=== PATIENT | male | born 1985 | race Two or more races ===

== ENCOUNTER → 2019-07-28 | Outpatient (REF) | payer BC ==
[2019-07-28 17:08] LABS: ALBUMIN 4.3 GM/DL (3.2-5.2); ALT/SGPT 41 U/L (12-78); BILIRUBIN,TOTAL 0.7 MG/DL (0.2-1.0); BLOOD UREA NITROGEN 13 MG/DL (7-18); CALCIUM LEVEL 9.6 MG/DL (8.5-10.1); CARBON DIOXIDE LEVEL 28 MEQ/L (21-32); CHLORIDE LEVEL 105 MEQ/L (98-107); CHOLESTEROL LEVEL 172 MG/DL (<200); CHOLESTEROL RISK RATIO 5.375 (<5); CREATININE FOR GFR 0.89 MG/DL (0.70-1.30); GLOMERULAR FILTRATION RATE > 60.0 (>60); GLUCOSE, FASTING 114 MG/DL (70-100); HDL CHOLESTEROL 32 MG/DL (>40); LDL CHOLESTEROL 74 MG/DL (<100); NON-HDL-C 140 MG/DL; POTASSIUM SERUM 4.2 MEQ/L (3.5-5.1); SODIUM LEVEL 139 MEQ/L (136-145); TOTAL PROTEIN 7.7 GM/DL (6.4-8.2); TRIGLYCERIDES LEVEL 331 MG/DL (<150)
[2019-07-28 17:12] LABS: BASO % 0.4 % (0.0-1.0); EOS # 0.2 10^3/uL (0.0-0.5); EOS % 2.1 % (0.0-3.0); HEMATOCRIT 45.8 % (42.0-52.0); LYMPH % 27.3 % (24.0-44.0); MEAN CORPUSCULAR HEMOGLOBIN 28.1 pg (27.0-33.0); MEAN CORPUSCULAR HGB CONC 32.8 g/dl (32.0-36.5); MEAN CORPUSCULAR VOLUME 85.8 fl (80.0-96.0); MONO # 0.5 10^3/uL (0.0-0.8); MONO % 6.8 % (0.0-5.0); NEUTROPHILS # 4.6 10^3/uL (1.5-8.5); NEUTROPHILS % 63.1 % (36.0-66.0); PLATELET COUNT, AUTOMATED 219 10^3/uL (150-450); RED BLOOD COUNT 5.34 10^6/uL (4.30-6.10); WHITE BLOOD COUNT 7.3 10^3/uL (4.0-10.0)
[2019-07-28 17:31] LABS: HEPATITIS B SURFACE ANTIGEN NEGATIVE (NEGATIVE)
[2019-07-28 17:32] LABS: HEMOGLOBIN A1c 6.2 %
[2019-07-28 17:58] LABS: HEPATITIS B CORE ANTIBODY IGM NEGATIVE (NEGATIVE)
[2019-07-28 18:00] LABS: HIV 1&2 SCREEN CENTAUR NEGATIVE (NEGATIVE)
[2019-07-28 18:01] LABS: HEPATITIS A ANTIBODY IGM NEGATIVE (NEGATIVE)
[2019-08-02 07:40] LABS: HEPATITIS C VIRUS ABY INDEX 0.5 INDEX (<0.8)
== END ==
LOC: M SFHCPLAZ 13:39
DX: Z00.00 Encounter for general adult medical examination without abnormal findings (principal)

== ENCOUNTER → 2019-07-28 | Outpatient (CLI) | payer BC ==
--- NOTE | 2019-07-28 14:38 | REPPI ---
REASON: Pain. FINDINGS: No acute fracture or destructive osseous lesion. Electronically Signed by Dima Mackenzie DO 07/28/2019 02:49 P
--- NOTE | 2019-07-28 14:39 | REPPI ---
REASON: Pain. FINDINGS: No acute fracture or destructive osseous lesion. Electronically Signed by Dima Mackenzie DO 07/28/2019 02:49 P
--- NOTE | 2019-07-28 14:39 | REPPI ---
RIGHT SHOULDER: REASON: Shoulder pain. COMPARISON: No priors. FINDINGS: Three views of the right shoulder were performed. The acromioclavicular and glenohumeral relationships are within normal limits. There is no acute fracture or destructive osseous lesion. Electronically Signed by Dima Mackenzie DO 07/28/2019 02:49 P
== END ==
LOC: M PLAIMG 13:40
PROVIDERS: ATTEND Internal Medicine
DX: S46.911A Strain of unspecified muscle, fascia and tendon at shoulder and upper arm level, right arm, initial encounter (principal); X58.XXXA Exposure to other specified factors, initial encounter; Y92.9 Unspecified place or not applicable

== ENCOUNTER 2019-09-04 09:00 | Outpatient (RCR) | payer BC | END 2019-09-05 | LOC: M PT 09:00 | PROVIDERS: ATTEND Obstetrics & Gynecology | DX: Z51.89 Encounter for other specified aftercare (principal); S46.819A Strain of other muscles, fascia and tendons at shoulder and upper arm level, unspecified arm, initial encounter; X58.XXXA Exposure to other specified factors, initial encounter; Y92.89 Other specified places as the place of occurrence of the external cause; Y93.9 Activity, unspecified; Y99.9 Unspecified external cause status ==

== ENCOUNTER 2019-10-02 12:15 | Outpatient (RCR) | payer BC | END 2019-10-06 | disposition home or self-care (01) | LOC: M PT 12:15 | PROVIDERS: ATTEND Obstetrics & Gynecology | DX: S46.819A Strain of other muscles, fascia and tendons at shoulder and upper arm level, unspecified arm, initial encounter (principal); X58.XXXA Exposure to other specified factors, initial encounter; Y92.9 Unspecified place or not applicable ==

== ENCOUNTER → 2019-11-08 | Outpatient (CLI) | payer BC ==
[2019-11-10 07:07] LABS: MUMPS VIRUS IgG ANTIBODY 48.6 AU/mL (Immune >10.9); RUBEOLA IgG ANTIBODY >300.0 AU/mL (Immune >16.4)
== END ==
LOC: M PLALAB 13:14
PROVIDERS: ATTEND Internal Medicine
DX: Z01.84 Encounter for antibody response examination (principal)

== ENCOUNTER → 2019-12-21 | Outpatient (CLI) | payer BC ==
--- NOTE | 2019-12-25 11:43 | ECWPNPC ---
PATIENT NAME: ADLTON ABRAHAM : 1985 GENDER: MALE VISIT DATE: 12/21/2019 DISCHARGE DATE: 12/21/19 0949 VISIT LOCKED DATE TIME: PHYSICIAN: MICHELLE SINGLETARY PHYSICIAN PAGER NO: ACTIVE RESOURCE: MICHELLE SINGLETARY REASON FOR APPOINTMENT 1. 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 HE NOTICED THIS ABOUT ONE YEAR AGO. 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 HE IS REFERRED HERE BY MARIO VELEZ. CERVICAL IMAGING IS REVIEWED. PAIN RANGES FROM 4-8/10 VAS. PAIN IS AGGRAVATED WITH USE OF RIGHT ARM I.E. LIFTING. DENIES RECENT FEVER OR ILLNESS OR WEIGHT LOSS. DENIES BOWEL OR BLADDER INCONTINENCE. PHQ-2 (2015 EDITION) LITTLE INTEREST OR PLEASURE IN DOING THINGS?NOT AT ALL FEELING DOWN, DEPRESSED, OR HOPELESS?NOT AT ALL TOTAL SCORE0 CURRENT MEDICATIONS TAKING METFORMIN HCL ER 500 MG TABLET EXTENDED RELEASE 24 HOUR 1 TABLET WITH EVENING MEAL ORALLY ONCE A DAY TAKING IBUPROFEN 600 MG TABLET 1 TABLET WITH FOOD OR MILK NEEDED ORALLY EVERY 8 HOURS NEEDED TAKING ACETAMINOPHEN EXTRA STRENGTH 500 MG TABLET 1 TABLET NEEDED ORALLY EVERY 6 HRS TAKING GABAPENTIN 300 MG CAPSULE 1 CAPSULE ORALLY ONCE A DAY PAST MEDICAL HISTORY MEDICAL HISTORY VERIFIED. ALLERGIES N.K.D.A. SURGICAL HISTORY DENIES PAST SURGICAL HISTORY FAMILY HISTORY FATHER: ALIVE 57 YRS MOTHER: ALIVE 53 YRS 1 BROTHER(S) - HEALTHY. DIABETES IN BOTH PARENTSHIGH CHOLESTEROL IN BOTH PARENTS. SOCIAL HISTORY GENERAL: TOBACCO USE ARE YOU A:NONSMOKER LATEX QUESTIONNAIRE LATEX ALLERGY : HAVE YOU EVER DEVELOPED ANY TYPE OF REACTION AFTER HANDLING LATEX PRODUCTS SUCH RUBBER GLOVES, CONDOMS, DIAPHRAGMS, BALLOONS, SOCKS, OR UNDERWEAR?NO LATEX ALLERGY : HAVE YOU EVER DEVELOPED ANY TYPE OF REACTION DURING OR AFTER DENTAL APPOINTMENT, VAGINAL/RECTAL EXAMINATION, SURGICAL PROCEDURE, OR ANY OTHER EXPOSURE?NO LATEX RISK : HAVE YOU EVER HAD ANY DIFFICULTY BREATHING OR HIVES AFTER EATING OR HANDLING ANY FRUITS, OR VEGETABLES; SUCH KIWI, BANANAS, STONE FRUITS, OR CHESTNUTSNO LATEX RISK : DO YOU HAVE A PREVIOUS PERSONAL HISTORY OF MORE THAN NINE SURGERIES, SPINA BIFIDA, OR REPEATED CATHERIZATIONS? NO LATEX RISK : ARE YOU FREQUENTLY EXPOSED TO LATEX PRODUCTS IN YOUR OCCUPATION?NO DATE ASKED : 12/21/2019 HIV / HEP-C SCREENING HIV TEST OFFERED TO PATIENT:YES DATE OFFERED:07/28/2019 TEST ACCEPTED:NO REASON:PATIENT DECLINED BROCHURE PROVIDED TO PATIENTYES LEARNING BARRIERS / SPECIAL NEEDS BARRIERS TO LEARNING?NO HEARING IMPAIRED?NO VISION IMPAIRED?NO COGNITIVELY IMPAIRED?NO READINESS TO LEARN?YES LEARNING PREFERENCES?NO LEARNING CAPABILITIES PRESENT?YES EMOTIONAL BARRIERS?NO SPECIAL DEVICES?NO STITCH BONDING MACHINE TENDER HELPER NEEDED?NO PAIN CLINIC PFS, CLERGY, PUBLIC HEALTH REFERRALS HAS THE PATIENT BEEN EDUCATED REGARDING HIS/HER PLAN OF CARE?YES HAS THE PATIENT BEEN EDUCATED REGARDING PAIN, THE RISK FOR PAIN, THE IMPORTANCE OF EFFECTIVE PAIN MANAGEMENT, AND THE PAIN ASSESSMENT PROCESS?YES HOSPITALIZATION/MAJOR DIAGNOSTIC PROCEDURE DENIES PAST HOSPITALIZATION REVIEW OF SYSTEMS CONSTITUTIONAL: ANY RECENT FEVER NO . CHILLS NO . WEIGHT CHANGE OF UNKNOWN REASONS NO . MUSCULOSKELETAL: ANY UNUSUAL JOINT PAIN OR SWELLING NOT MENTIONED NO . SYSTEMIC LUPUS NO . ANY NEUROMUSCULAR DISORDER NOT MENTIONED NO . LYME DISEASE NO . GASTROENTEROLOGY: ANY NEW CHANGE IN BOWEL CONTROL? NO . HISTORY OF LIVER DISORDER NOT MENTIONED NO . HISTORY OF UNUSUAL ABDOMINAL PAIN OR CRAMPING NOT MENTIONED NO . NO CONSTIPATION. GENITOURINARY: ANY NEW CHANGE IN BLADDER CONTROL? NO . ANY RENAL/KIDNEY CONDITON NOT MENTIONED NO . NEUROLOGY: HISTORY OF TBI NOT MENTIONED NO . OTHER NEW NUMBNESS OR PAIN PATTERNS NOT MENTIONED NO . NEW ONSET DIZZINESS OR NEUROLOGICAL CHANGES NOT MENTIONED NO . HISTORY OF SEVERE HEADACHES NOT MENTIONED NO . HISTORY OF STROKE OR NEUROLOGICAL DISORDER NOT MENTIONED NO . CARDIOLOGY: HEART SURGERY NO . CONGESTIVE HEART FAILURE/FLUID OVERLOAD NOT MENTIONED NO . HISTORY OF CHEST PAIN,IRREGULAR HEART BEAT NOT MENTIONED NO . RESPIRATORY: SHORTNESS OF BREATH ON EXERTION, WHEEZES, UNUSUAL COUGH NOT MENTIONED NO . ENDOCRINOLOGY: ADRENAL GLAND OR THYROID DISORDERS NOT MENTIONED NO . UNUSUAL URINATION, DIZZINESS OR LETHARGY NOT MENTIONED NO . VITAL SIGNS WT 138.2 LBS, HT 66 IN, BMI 22.30 INDEX, BP 131/74 MM HG, HR 66 /MIN, RR 18 /MIN, TEMP 97.5 F, OXYGEN SAT % 100, SAFE IN ENV? (Y/N) YES, REVIEWED BY: LENCHO. EXAMINATION GENERAL EXAMINATION: GENERAL AWAKE,ALERT ,PLEAASANT . PSYCH AFFECT NORMAL . LUNGS: LUNG RUFFIN ARE CLEAR TO AUSCULTATION BILATERALLY. GOOD MOVEMENT OF AIR . HEART: S1, S2 IN A REGULAR RATE AND RHYTHM. NO SIGNIFICANT MURMURS, RUBS OR GALLOPS NOTED . MUSCULOSKELETAL:NORMAL RANGE OF MOTION, TRIGGER POINTS:, ELICITED WITH PALPATION OVER RIGHT RHOMBOID, RIGHT UPPER BACK, RIGHT SCAPULA A. PAIN IN THIS AREA IS AGGRAVATED WITH RANGE OF JOINT MOTION OF THE RIGHT ARM.. DIAGNOSTIC TESTS REVIEWEDMRI C-SPINE . ASSESSMENTS MYALGIA, OTHER SITE - M79.18 (PRIMARY) TREATMENT MYALGIA, OTHER SITE NOTES: TRIGGER POINT INJECTION RIGHT UPPER BACK. PROCEDURE CODES FA211 ESTABILISHED PATIENT [facility] FACILITY CHARGE DISPOSITION & COMMUNICATION FOLLOW UP POST PROCEDURE (REASON: TRIGGER POINT INJECTION RIGHT UPPER BACK) ELECTRONICALLY SIGNED BY REAL DUNBAR ON 12/25/2019 AT 11:17 AM EDT DISCLAIMER : THIS IS A VISIT SUMMARY EXTRACTED FROM THE [employer] CHART. IT IS NOT A COPY OF THE [employer] PROGRESS NOTE. RADU
== END ==
LOC: M PAIN 08:30
PROVIDERS: ATTEND Nurse Practitioner Family
DX: M79.18 Myalgia, other site (principal); Z79.899 Other long term (current) drug therapy

== ENCOUNTER → 2020-01-08 | Outpatient (CLI) | payer BC | LOC: M LABSMTC 10:38 | PROVIDERS: ATTEND Anesthesiology | DX: Z20.828 Contact with and (suspected) exposure to other viral communicable diseases (principal) | CPT/HCPCS: C9803; U0003 ==

== ENCOUNTER → 2020-01-12 | Outpatient (CLI) | payer BC ==
[~2020-01-12] MED LIST: BUPIVACAINE HCL 0.25% 10ML VIAL As Ordered ONE; BUPIVACAINE HCL 0.25% 30ML VIAL As Ordered ONE
--- NOTE | 2020-01-17 00:19 | ECWPNPC ---
PATIENT NAME: DALTON ABRAHAM : 1985 GENDER: MALE VISIT DATE: 01/12/2020 DISCHARGE DATE: 01/12/20 1132 VISIT LOCKED DATE TIME: PHYSICIAN: ROXANNA CURTIS MD PHYSICIAN PAGER NO: ACTIVE RESOURCE: ROXANNA CURTIS MD REASON FOR APPOINTMENT 1. TRIGGER POINT INJECTION RIGHT UPPER BACK HISTORY OF PRESENT ILLNESS GENERAL: -. FALL RISK SCREENING: SCREENING :NO FALLS REPORTED IN THE LAST YEAR PAIN SCREENING: PATIENT HAS A COMPLAINT OF ACUTE OR CHRONIC PAIN :YES LOCATION OF PAIN: RIGHT SHOULDER, AND ARM INTENSITY OF PAIN (SCALE OF 1 TO 10):6 WHAT DOES YOUR PAIN FEEL LIKE:CONTINOUS, ACHING DURATION:CONSTANT PAIN IS INCREASED BY:ACTIVITIES PLAN/GOALS/TREATMENT/INTERVENTION/FOLLOW UP:SEE PLAN NURSING NOTE: -. PAIN CENTER INTAKE QUESTIONS: DO YOU HAVE A HISTORY OF MRSA? :NO DO YOU TAKE A BLOOD THINNERS? :NO DO YOU HAVE ANY BLEEDING DISORDERS? :NO ANY NEW NUMBNESS OR WEAKNESS IN YOUR LEGS OR ARMS? :NO ANY PACEMAKER,DEFIBRILLATOR, OR DORSAL COLUMN STIMULATOR? :NO DO YOU HAVE ANY RASHES OR OPEN SORES? :NO ARE YOU ALLERGIC TO IV DYE? :NO ARE YOU DIABETIC? :NO ANY NEW PROBLEMS WITH YOUR MEDICATIONS? :NO HAVE YOU RECEIVED A VACCINE IN THE PAST 30 DAYS? :NO DO YOU PLAN TO RECEIVE A VACCINE IN THE NEXT 21 DAYS? :NO DO YOU TAKE ANY IMMUNOSUPPRESSIVE MEDICATIONS? :NO ANY HISTORY OF SEIZURES? :NO ANY HISTORY OF CARDIAC ISSUES OR EVENTS? :NO DO YOU HAVE SLEEP APNEA? :NO ANY RECENT HEAD INJURY? :NO DO YOU HAVE ANY NEW INFECTIONS? :NO IS THERE A CHANCE YOU COULD BE ? :NO ARE YOU BREAST FEEDING? :NO WHEN DID YOU LAST EAT? : 01/11/20 2200 WHEN DID YOU LAST DRINK? : 01/11/20 0700 WHAT DID YOU LAST DRINK? : WATER NAME OF PERSON DRIVING YOU HOME? : BROTHER DO YOU HAVE ANY OTHER QUESTIONS OR CONCERNS? : NO CURRENT MEDICATIONS TAKING IBUPROFEN 600 MG TABLET 1 TABLET WITH FOOD OR MILK NEEDED ORALLY EVERY 8 HOURS NEEDED TAKING GABAPENTIN 300 MG CAPSULE 1 CAPSULE ORALLY ONCE A DAY NOT-TAKING METFORMIN HCL ER 500 MG TABLET EXTENDED RELEASE 24 HOUR 1 TABLET WITH EVENING MEAL ORALLY ONCE A DAY NOT-TAKING ACETAMINOPHEN EXTRA STRENGTH 500 MG TABLET 1 TABLET NEEDED ORALLY EVERY 6 HRS PAST MEDICAL HISTORY MEDICAL HISTORY VERIFIED. ALLERGIES N.K.D.A. SURGICAL HISTORY DENIES PAST SURGICAL HISTORY FAMILY HISTORY FATHER: ALIVE 57 YRS MOTHER: ALIVE 53 YRS SIBLINGS: ALIVE 1 BROTHER(S) - HEALTHY. DIABETES IN FATHERHIGH CHOLESTEROL IN BOTH PARENTS. SOCIAL HISTORY GENERAL: TOBACCO USE ARE YOU A:NONSMOKER LATEX QUESTIONNAIRE LATEX ALLERGY : HAVE YOU EVER DEVELOPED ANY TYPE OF REACTION AFTER HANDLING LATEX PRODUCTS SUCH RUBBER GLOVES, CONDOMS, DIAPHRAGMS, BALLOONS, SOCKS, OR UNDERWEAR?NO LATEX ALLERGY : HAVE YOU EVER DEVELOPED ANY TYPE OF REACTION DURING OR AFTER DENTAL APPOINTMENT, VAGINAL/RECTAL EXAMINATION, SURGICAL PROCEDURE, OR ANY OTHER EXPOSURE?NO LATEX RISK : HAVE YOU EVER HAD ANY DIFFICULTY BREATHING OR HIVES AFTER EATING OR HANDLING ANY FRUITS, OR VEGETABLES; SUCH KIWI, BANANAS, STONE FRUITS, OR CHESTNUTSNO LATEX RISK : DO YOU HAVE A PREVIOUS PERSONAL HISTORY OF MORE THAN NINE SURGERIES, SPINA BIFIDA, OR REPEATED CATHERIZATIONS? NO LATEX RISK : ARE YOU FREQUENTLY EXPOSED TO LATEX PRODUCTS IN YOUR OCCUPATION?NO DATE ASKED : 01/12/2020 ALCOHOL SCREENING DID YOU HAVE A DRINK CONTAINING ALCOHOL IN THE PAST YEAR?YES HOW OFTEN DID YOU HAVE A DRINK CONTAINING ALCOHOL IN THE PAST YEAR?TWO TO FOUR TIMES A MONTH (2 POINTS) HOW MANY DRINKS DID YOU HAVE ON A TYPICAL DAY WHEN YOU WERE DRINKING IN THE PAST YEAR?1 OR 2 (0 POINTS) HOW OFTEN DID YOU HAVE SIX OR MORE DRINKS ON ONE OCCASION IN THE PAST YEAR?NEVER (0 POINTS) POINTS2 INTERPRETATIONNEGATIVE HIV / HEP-C SCREENING HIV TEST OFFERED TO PATIENT:YES DATE OFFERED:07/28/2019 TEST ACCEPTED:NO REASON:PATIENT DECLINED BROCHURE PROVIDED TO PATIENTYES LANGUAGE LANGUAGES SPOKEN: [facility] EDUCATION LEVEL OF EDUCATION:COLLEGE LEARNING BARRIERS / SPECIAL NEEDS BARRIERS TO LEARNING?NO HEARING IMPAIRED?NO VISION IMPAIRED?NO COGNITIVELY IMPAIRED?NO READINESS TO LEARN?YES LEARNING PREFERENCES?NO LEARNING CAPABILITIES PRESENT?YES EMOTIONAL BARRIERS?NO SPECIAL DEVICES?NO JUKEBOX OPERATOR NEEDED?YES HAVE AVAILABLE ([facility]) OCCUPATION: UNEMPLOYED. DIET: NO ADDED SALT, LOW FAT, LOW CHOLESTEROL. MARITAL STATUS: SINGLE. PAIN CLINIC PFS, CLERGY, PUBLIC HEALTH REFERRALS HAS THE PATIENT BEEN EDUCATED REGARDING HIS/HER PLAN OF CARE?YES HAS THE PATIENT BEEN EDUCATED REGARDING PAIN, THE RISK FOR PAIN, THE IMPORTANCE OF EFFECTIVE PAIN MANAGEMENT, AND THE PAIN ASSESSMENT PROCESS?YES HOUSING: PARENTS HOME. ADVANCE DIRECTIVE ADVANCE DIRECTIVE DISCUSSED WITH PATIENT:YES OFFERED ASSISTANCE NOT NEEDED AT THIS TIME. HOSPITALIZATION/MAJOR DIAGNOSTIC PROCEDURE DENIES PAST HOSPITALIZATION VITAL SIGNS WT 139.6 LBS, HT 66 IN, BMI 22.53 INDEX, BP 137/87 MM HG, HR 102 /MIN, RR 18 /MIN, TEMP 98.0 F, OXYGEN SAT % 99%, SAFE IN ENV? (Y/N) YES, NA INITIALS GA 09:37, REVIEWED BY: JAMES GOLDSTEIN MANAGER OF SUSTAINABILITY. EXAMINATION GENERAL EXAMINATION: THE PATIENT IS ALERT, ORIENTED TIMES THREE AND COOPERATIVE. HEART SHOWS REGULAR RHYTHM, NO MURMURS AND NO GALLOPS. LUNGS ARE CLEAR TO AUSCULTATION. ASSESSMENTS MYALGIA, OTHER SITE - M79.18 (PRIMARY) PROCEDURES PAIN NURSING RECORD PRE-PROCEDURE IV SITE N/A, PRE-PROCEDURE ORAL MEDICATIONS NO PROCEDURE IN ROOM 0935 UPON ARRIVAL TO CLINIC, PHYSICIAN IN ROOM 1105, START 1110, FINISH 1117, PHYSICIAN OUT OF ROOM 1122, OUT OF ROOM 1130, STEROID N/A, O2 RA, ECG N/A, PATIENT SHIELDED NO, SAFETY STRAP NO, PREP ALCOHOL DR. CURTIS, IV INFUSED N/A, DRESSING TEGADERM Lacey GOLDSTEIN MANAGER OF SUSTAINABILITY LOC: ARVIND GOLDSTEIN 01/12/2020 09:40:16 AM > 1. ALERT, ORIENTED RESP: ARVIND GOLDSTEIN 01/12/2020 09:40:16 AM > 1. REGULAR, NO DYSPNEA COLOR: ARVIND GOLDSTEIN 01/12/2020 09:40:16 AM > 1. PINK SKIN: ARVIND GOLDSTEIN 01/12/2020 09:40:16 AM > 1. WARM, DRY POSITION: ARVIND GOLDSTEIN 01/12/2020 09:40:16 AM > 4. OTHER VITALS: ARVIND GOLDSTEIN 01/12/2020 11:20:32 AM > POST PROCEDURE 128/84, 90, 99% RA, 16. NOTES STAFF UTILIZED HOSPITAL TRANSLATION SERVICE WITH IPAD SECURED FROM NURSING SUPERVISORS OFFICE. CONSENT READ WITH PATIENT AND VETERINARY DENTIST TRANSLATED INTO JAPANESE. PATIENT VERBALIZED UNDERSTANDING. NURSE VERBALIZED PROCEDURE STEP BY STEP WITH USE OF VETERINARY DENTIST. PROVIDER UTILIZED VETERINARY DENTIST DURING CONSENT PROCESS. PATIENT TOLERATED PROCDURE WELL, PATIENT'S VITAL SIGNS STABLE AND WITHIN NORMAL LIMITS. NURSE DISCUSSED DISCHARGE INSTRUCTIONS WITH PATIENT, PATIENT VERBALIZED UNDERSTANDING. DISCHARGE: POST PAIN 0/10, DRESSING SITE DRY AND INTACT, IV N/A, GAIT STEADY, TEACHING COMPLETED, PATIENT ACKNOWLEDGES UNDERSTANDING YES, PATIENT DISCHARGED AT 1130 PN TRIGGER POINT INJECTION NO STEROIDS PRE PROCEDURE DIAGNOSIS 1. MYALGIA 2. PAIN AT RIGHT SHOULDER AREA POST PROCEDURE DIAGNOSIS 1. MYALGIA 2. PAIN AT RIGHT SHOULDER AREA PROCEDURE TRIGGER POINT INJECTION AT RIGHT SHOULDER AREA SURGEON DR. ROXANNA CURTIS SHOP GIRL NONE ANESTHESIA LOCAL PRE PROCEDURE NOTE PATIENT WITH HISTORY OF CHRONIC PAIN AT RIGHT SHOULDER AREA. I EVALUATED THE PATIENT AND REVIEWED THE CHART. THERE IS EVIDENCE OF BANDS OF TISSUE WITH RESTRICTION OF MOVEMENT AND PRESENCE OF TRIGGER POINT AT THE RIGHT SHOULDER AREA. I WENT OVER THE RISKS, ALTERNATIVES, AND BENEFITS ASSOCIATED WITH THIS PROCEDURE. THE PATIENT WOULD LIKE TO PROCEED AND GAVE CONSENT TO PERFORM THE PROCEDURE. THE PATIENT DENIES UNEXPLAINABLE WEIGHT LOSS, FEVER, CHILLS, OR NEW CHANGES IN URINARY OR BOWEL CONTROL. THE PATIENT IS COVID-19 NEGATIVE DESCRIPTION OF PROCEDURE THE PATIENT WAS BROUGHT TO THE PROCEDURE ROOM AND PLACED IN THE SITTING POSITION. THE AREA WAS CLEANED WITH ALCOHOL. THE PROCEDURE WAS DONE USING ASEPTIC STERILE TECHNIQUES. I CHECKED LATERALITY AND THE LEVEL WHERE THE PROCEDURE WAS GOING TO BE PERFORMED WITH THE PATIENT AND THE SUPPORTING STAFF AT THE MOMENT OF THE TIME OUT IN THE PROCEDURE ROOM. USING A 25-GAUGE NEEDLE, TRIGGER POINTS WERE INJECTED INTO THE RIGHT SHOULDER AREA WITH A TOTAL OF 40 ML OF BUPIVACAINE 0.25%. AGREED WITH THE PATIENT THE PROCEDURE WAS DONE WITHOUT STEROIDS. THERE WAS NO EVIDENCE OF BLOOD, PARESTHESIA OR CEREBROSPINAL FLUID DURING THE PROCEDURE. THE PATIENT WAS SENT TO THE RECOVERY ROOM. THE PATIENT WAS MOVING THE EXTREMITIES AND DOING WELL. THERE WAS NO COMPLICATION DURING THE PROCEDURE. EBL LESS THAN 5 ML POST PROCEDURE NOTE CONSIDER A NERVE CONDUCTION STUDY OF THE RIGHT UPPER EXTREMITY. THE PROCEDURE DONE WAS DISCUSSED WITH THE PATIENT. THE PATIENT WILL BE SEEN IN A FOLLOW UP IN THE NEXT FEW WEEKS. I AM LOOKING FOR LONG LASTING PAIN RELIEF FOR THE PATIENT WITH THIS INTERVENTION. INSTRUCTIONS WERE GIVEN, QUESTIONS WERE ANSWERED, AND THE PATIENT EXPRESSED UNDERSTANDING AND AGREES WITH THE PLAN. I, CUCO NAIR, DOCUMENTED THE ABOVE INFORMATION ACTING A SCRIBE FOR DR. CURTIS. I HAVE REVIEWED THE ABOVE DOCUMENT, WRITTEN BY CUCO NAIR, HAT PRESSER, AND I VERIFY THAT IT IS ACCURATE PROCEDURE CODES 68684 INJ TRIGGER POINT 03/09 MUSCL DISPOSITION & COMMUNICATION FOLLOW UP FOLLOW UP WITH HIGH SCHOOL GUIDANCE COUNSELOR (REASON: POST TPI RIGHT SHOULDER ) ELECTRONICALLY SIGNED BY ROXANNA CURTIS MD, ON 01/16/2020 AT 03:31 PM EST DISCLAIMER : THIS IS A VISIT SUMMARY EXTRACTED FROM THE [employer] CHART. IT IS NOT A COPY OF THE [employer] PROGRESS NOTE. RADU
== END ==
LOC: M PAIN 09:30
PROVIDERS: ATTEND Anesthesiology
DX: M79.18 Myalgia, other site (principal); Z79.1 Long term (current) use of non-steroidal anti-inflammatories (NSAID); Z79.899 Other long term (current) drug therapy

== ENCOUNTER → 2020-01-29 | Outpatient (CLI) | payer BC ==
--- NOTE | 2020-02-06 06:28 | ECWPNPC ---
PATIENT NAME: DALTON ABRAHAM : 1985 GENDER: MALE VISIT DATE: 01/29/2020 DISCHARGE DATE: 01/29/20 1503 VISIT LOCKED DATE TIME: PHYSICIAN: MICHELLE SINGLETARY PHYSICIAN PAGER NO: ACTIVE RESOURCE: MICHELLE SINGLETARY REASON FOR APPOINTMENT 1. POST TPI RIGHT SHOULDER HISTORY OF PRESENT ILLNESS GENERAL: HERE FOR POST PROCEDURE FOLLOW-UP. HAD TRIGGER POINT INJECTION RIGHT SHOULDER ON 01/12/2020. REPORTS SIGNIFICANT IMPROVEMENT IN RIGHT SHOULDER PAIN SINCE PROCEDURE. 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 DISCUSSED PHYSICAL THERAPY FOR MYOFASCIAL RELEASE. -. FALL RISK SCREENING: SCREENING :NO FALLS REPORTED IN THE LAST YEAR PAIN SCREENING: PATIENT HAS A COMPLAINT OF ACUTE OR CHRONIC PAIN :YES LOCATION OF PAIN:RIGHT SHOULDER, UPPER BACK, HAND(S) INTENSITY OF PAIN (SCALE OF 1 TO 10):5 WHAT DOES YOUR PAIN FEEL LIKE:BURNING PT CAN'T DESCRIBE HIS PAIN DURATION:INTERMITTENT PAIN IS INCREASED BY:OTHERS TYPING, LIFTING PAIN IS DECREASED BY:OTHERS NO TYPING OR LIFTING TREATMENT/MEDICATIONS USED TO MANAGE PAIN:NONE LEVEL OF RELIEF FROM PAIN TREATMENTS IN THE PAST:0% PAIN HAS INTERFERED WITH THE FOLLOWING:SLEEP NURSING NOTE: -. PAIN CENTER INTAKE QUESTIONS: DO YOU HAVE A HISTORY OF MRSA? :NO DO YOU TAKE A BLOOD THINNERS? :NO DO YOU HAVE ANY BLEEDING DISORDERS? :NO ANY NEW NUMBNESS OR WEAKNESS IN YOUR LEGS OR ARMS? :NO ANY PACEMAKER,DEFIBRILLATOR, OR DORSAL COLUMN STIMULATOR? :NO DO YOU HAVE ANY RASHES OR OPEN SORES? :NO ARE YOU ALLERGIC TO IV DYE? :NO ARE YOU DIABETIC? :NO ANY NEW PROBLEMS WITH YOUR MEDICATIONS? :NO HAVE YOU RECEIVED A VACCINE IN THE PAST 30 DAYS? :NO DO YOU PLAN TO RECEIVE A VACCINE IN THE NEXT 21 DAYS? :NO DO YOU NEED ANY PRESCRIPTION? :NO DO YOU TAKE ANY IMMUNOSUPPRESSIVE MEDICATIONS? :NO IS THERE A CHANCE YOU COULD BE ? :NO ARE YOU BREAST FEEDING? :NO CURRENT MEDICATIONS NOT-TAKING IBUPROFEN 600 MG TABLET 1 TABLET WITH FOOD OR MILK NEEDED ORALLY EVERY 8 HOURS NEEDED NOT-TAKING GABAPENTIN 300 MG CAPSULE 1 CAPSULE ORALLY ONCE A DAY NOT-TAKING METFORMIN HCL ER 500 MG TABLET EXTENDED RELEASE 24 HOUR 1 TABLET WITH EVENING MEAL ORALLY ONCE A DAY NOT-TAKING ACETAMINOPHEN EXTRA STRENGTH 500 MG TABLET 1 TABLET NEEDED ORALLY EVERY 6 HRS MEDICATION LIST REVIEWED AND RECONCILED WITH THE PATIENT PAST MEDICAL HISTORY MEDICAL HISTORY VERIFIED. ALLERGIES N.K.D.A. SURGICAL HISTORY NO SURGICAL HISTORY DOCUMENTED. FAMILY HISTORY FATHER: ALIVE 57 YRS MOTHER: ALIVE 53 YRS SIBLINGS: ALIVE 1 BROTHER(S) - HEALTHY. DIABETES IN FATHERHIGH CHOLESTEROL IN BOTH PARENTS. SOCIAL HISTORY GENERAL: TOBACCO USE ARE YOU A:NONSMOKER LATEX QUESTIONNAIRE LATEX ALLERGY : HAVE YOU EVER DEVELOPED ANY TYPE OF REACTION AFTER HANDLING LATEX PRODUCTS SUCH RUBBER GLOVES, CONDOMS, DIAPHRAGMS, BALLOONS, SOCKS, OR UNDERWEAR?NO LATEX ALLERGY : HAVE YOU EVER DEVELOPED ANY TYPE OF REACTION DURING OR AFTER DENTAL APPOINTMENT, VAGINAL/RECTAL EXAMINATION, SURGICAL PROCEDURE, OR ANY OTHER EXPOSURE?NO LATEX RISK : HAVE YOU EVER HAD ANY DIFFICULTY BREATHING OR HIVES AFTER EATING OR HANDLING ANY FRUITS, OR VEGETABLES; SUCH KIWI, BANANAS, STONE FRUITS, OR CHESTNUTSNO LATEX RISK : DO YOU HAVE A PREVIOUS PERSONAL HISTORY OF MORE THAN NINE SURGERIES, SPINA BIFIDA, OR REPEATED CATHERIZATIONS? NO LATEX RISK : ARE YOU FREQUENTLY EXPOSED TO LATEX PRODUCTS IN YOUR OCCUPATION?NO DATE ASKED : 01/12/2020 ALCOHOL SCREENING DID YOU HAVE A DRINK CONTAINING ALCOHOL IN THE PAST YEAR?YES HOW OFTEN DID YOU HAVE SIX OR MORE DRINKS ON ONE OCCASION IN THE PAST YEAR?NEVER (0 POINTS) HOW MANY DRINKS DID YOU HAVE ON A TYPICAL DAY WHEN YOU WERE DRINKING IN THE PAST YEAR?1 OR 2 (0 POINTS) HOW OFTEN DID YOU HAVE A DRINK CONTAINING ALCOHOL IN THE PAST YEAR?TWO TO FOUR TIMES A MONTH (2 POINTS) POINTS2 INTERPRETATIONNEGATIVE HIV / HEP-C SCREENING HIV TEST OFFERED TO PATIENT:YES DATE OFFERED:07/28/2019 TEST ACCEPTED:NO REASON:PATIENT DECLINED BROCHURE PROVIDED TO PATIENTYES LANGUAGE LANGUAGES SPOKEN: [facility] EDUCATION LEVEL OF EDUCATION:COLLEGE LEARNING BARRIERS / SPECIAL NEEDS BARRIERS TO LEARNING?NO HEARING IMPAIRED?NO VISION IMPAIRED?NO COGNITIVELY IMPAIRED?NO READINESS TO LEARN?YES LEARNING PREFERENCES?NO LEARNING CAPABILITIES PRESENT?YES EMOTIONAL BARRIERS?NO SPECIAL DEVICES?NO TAP DANCER NEEDED?YES HAVE AVAILABLE ([facility]) OCCUPATION: UNEMPLOYED. DIET: NO ADDED SALT, LOW FAT, LOW CHOLESTEROL. MARITAL STATUS: SINGLE. PAIN CLINIC PFS, CLERGY, PUBLIC HEALTH REFERRALS HAS THE PATIENT BEEN EDUCATED REGARDING HIS/HER PLAN OF CARE?YES HAS THE PATIENT BEEN EDUCATED REGARDING PAIN, THE RISK FOR PAIN, THE IMPORTANCE OF EFFECTIVE PAIN MANAGEMENT, AND THE PAIN ASSESSMENT PROCESS?YES HOUSING: PARENTS HOME. ADVANCE DIRECTIVE ADVANCE DIRECTIVE DISCUSSED WITH PATIENT:YES OFFERED ASSISTANCE NOT NEEDED AT THIS TIME. HOSPITALIZATION/MAJOR DIAGNOSTIC PROCEDURE NO HOSPITALIZATION HISTORY. REVIEW OF SYSTEMS CONSTITUTIONAL: ANY RECENT FEVER NO . CHILLS NO . WEIGHT CHANGE OF UNKNOWN REASONS NO . MUSCULOSKELETAL: ANY UNUSUAL JOINT PAIN OR SWELLING NOT MENTIONED NO . SYSTEMIC LUPUS NO . ANY NEUROMUSCULAR DISORDER NOT MENTIONED NO . LYME DISEASE NO . GASTROENTEROLOGY: ANY NEW CHANGE IN BOWEL CONTROL? NO . HISTORY OF LIVER DISORDER NOT MENTIONED NO . HISTORY OF UNUSUAL ABDOMINAL PAIN OR CRAMPING NOT MENTIONED NO . NO CONSTIPATION. GENITOURINARY: ANY NEW CHANGE IN BLADDER CONTROL? NO . ANY RENAL/KIDNEY CONDITON NOT MENTIONED NO . NEUROLOGY: HISTORY OF TBI NOT MENTIONED NO . OTHER NEW NUMBNESS OR PAIN PATTERNS NOT MENTIONED NO . NEW ONSET DIZZINESS OR NEUROLOGICAL CHANGES NOT MENTIONED NO . HISTORY OF SEVERE HEADACHES NOT MENTIONED NO . HISTORY OF STROKE OR NEUROLOGICAL DISORDER NOT MENTIONED NO . CARDIOLOGY: HEART SURGERY NO . CONGESTIVE HEART FAILURE/FLUID OVERLOAD NOT MENTIONED NO . HISTORY OF CHEST PAIN,IRREGULAR HEART BEAT NOT MENTIONED NO . RESPIRATORY: SHORTNESS OF BREATH ON EXERTION, WHEEZES, UNUSUAL COUGH NOT MENTIONED NO . ENDOCRINOLOGY: ADRENAL GLAND OR THYROID DISORDERS NOT MENTIONED NO . UNUSUAL URINATION, DIZZINESS OR LETHARGY NOT MENTIONED NO . VITAL SIGNS WT 142 LBS, HT 66 IN, BMI 22.92 INDEX, BP 135/86 MM HG, HR 64 /MIN, RR 16 /MIN, TEMP 98.8 F, OXYGEN SAT % 99, SAFE IN ENV? (Y/N) Y, REVIEWED BY: EM. EXAMINATION GENERAL EXAMINATION: GENERAL AWAKE,ALERT ,PLEAASANT . PSYCH AFFECT NORMAL . LUNGS: LUNG RUFFIN ARE CLEAR TO AUSCULTATION BILATERALLY. GOOD MOVEMENT OF AIR . HEART: S1, S2 IN A REGULAR RATE AND RHYTHM. NO SIGNIFICANT MURMURS, RUBS OR GALLOPS NOTED . MUSCULOSKELETAL:NORMAL RANGE OF MOTION, TRIGGER POINTS:, ELICITED WITH PALPATION OVER RIGHT RHOMBOID, RIGHT UPPER BACK, RIGHT SCAPULA A. PAIN IN THIS AREA IS AGGRAVATED WITH RANGE OF JOINT MOTION OF THE RIGHT ARM.. DIAGNOSTIC TESTS REVIEWEDMRI C-SPINE . ASSESSMENTS MYALGIA, OTHER SITE - M79.18 (PRIMARY) OTHER CHRONIC PAIN - G89.29 TREATMENT MYALGIA, OTHER SITE NOTES: PT 2 TIMES A WEEK X6 WEEKS FOR MYOFASCIAL RELEASE RIGHT SHOULDER RIGHT UPPER BACK RIGHT NECK. REFERRAL TO:PHYSICAL THERAPIST REASON:2XWK X 6 WKS,MYOFASCIAL RELEASE,RIGHT SHOULDER, NECK AND UPPER BACK OTHER CHRONIC PAIN PAIN PROCEDURE LOGDATE OF [id number]/6/20PROCEDURE:TRIGGER POIN INJECTIONS RIGHT UPPER BACKAMOUNT OF PRE SEDATE0/0RESULT:IMPROVEMENT CONTINUES TODAY PROCEDURE CODES FA211 ESTABILISHED PATIENT [facility] CHARGE DISPOSITION & COMMUNICATION FOLLOW UP 2 MONTHS (REASON: FOLLOW-UP PHYSICAL THERAPY FOR MYOFASCIAL RELEASE/CONSIDER TRIGGER POINT INJECTIONS AGAIN) ELECTRONICALLY SIGNED BY REAL DUNBAR ON 02/05/2020 AT 12:48 PM EST DISCLAIMER : THIS IS A VISIT SUMMARY EXTRACTED FROM THE [employer] CHART. IT IS NOT A COPY OF THE [employer] PROGRESS NOTE. RADU
== END ==
LOC: M PAIN 14:00
PROVIDERS: ATTEND Nurse Practitioner Family
DX: G89.29 Other chronic pain (principal); M79.18 Myalgia, other site; Z79.84 Long term (current) use of oral hypoglycemic drugs; Z79.899 Other long term (current) drug therapy

== ENCOUNTER → 2020-02-23 | Outpatient (CLI) | payer BC ==
--- NOTE | 2020-02-25 23:04 | ECWPNPC ---
PATIENT NAME: DALTON ABRAHAM : 1985 GENDER: MALE VISIT DATE: 02/23/2020 DISCHARGE DATE: 02/23/20929 VISIT LOCKED DATE TIME: PHYSICIAN: MICHELLE SINGLETARY PHYSICIAN PAGER NO: ACTIVE RESOURCE: MICHELLE SINGLETARY REASON FOR APPOINTMENT 1. INCREASED PAIN NECK/SHOULDER HISTORY OF PRESENT ILLNESS GENERAL: HERE TODAY ON AN URGENT BASIS DUE TO INCREASE IN RIGHT SHOULDER PAIN. 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 PAIN HAS CALMED DOWN OVER THE PAST WEEK. HE IS DOING HOME STRETCHING EXERCISES PER PHYSICAL THERAPY. [place] AND WILL BE BACK MID APRIL. HE IS AGREEABLE TO BE SEEN AT FOLLOW-UP AT THAT POINT IN TIME. HAS RESPONDED WELL TO TRIGGER POINT INJECTIONS IN THE PAST. LAST TRIGGER POINT INJECTIONS WERE DONE IN JANUARY.-. FALL RISK SCREENING: SCREENING :NO FALLS REPORTED IN THE LAST YEAR PAIN SCREENING: PATIENT HAS A COMPLAINT OF ACUTE OR CHRONIC PAIN :YES LOCATION OF PAIN:RIGHT SHOULDER RIGHT ARM INTENSITY OF PAIN (SCALE OF 1 TO 10):4 WHAT DOES YOUR PAIN FEEL LIKE:INTERMITTENT DURATION:INTERMITTENT PAIN IS INCREASED BY:ACTIVITIES PAIN IS DECREASED BY:OTHERS EXCERSISE TREATMENT/MEDICATIONS USED TO MANAGE PAIN:NONE LEVEL OF RELIEF FROM PAIN TREATMENTS IN THE PAST:75% PAIN HAS INTERFERED WITH THE FOLLOWING:EMPLOYMENT TYPING NURSING NOTE: -. PAIN CENTER INTAKE QUESTIONS: DO YOU HAVE A HISTORY OF MRSA? :NO DO YOU TAKE A BLOOD THINNERS? :NO DO YOU HAVE ANY BLEEDING DISORDERS? :NO ANY NEW NUMBNESS OR WEAKNESS IN YOUR LEGS OR ARMS? :NO ANY PACEMAKER,DEFIBRILLATOR, OR DORSAL COLUMN STIMULATOR? :NO DO YOU HAVE ANY RASHES OR OPEN SORES? :NO ARE YOU ALLERGIC TO IV DYE? :NO ARE YOU DIABETIC? :NO ANY NEW PROBLEMS WITH YOUR MEDICATIONS? :NO HAVE YOU RECEIVED A VACCINE IN THE PAST 30 DAYS? :NO DO YOU PLAN TO RECEIVE A VACCINE IN THE NEXT 21 DAYS? :NO DO YOU NEED ANY PRESCRIPTION? :NO DO YOU TAKE ANY IMMUNOSUPPRESSIVE MEDICATIONS? :NO IS THERE A CHANCE YOU COULD BE ? :NO ARE YOU BREAST FEEDING? :NO CURRENT MEDICATIONS NOT-TAKING IBUPROFEN 600 MG TABLET 1 TABLET WITH FOOD OR MILK NEEDED ORALLY EVERY 8 HOURS NEEDED NOT-TAKING GABAPENTIN 300 MG CAPSULE 1 CAPSULE ORALLY ONCE A DAY NOT-TAKING METFORMIN HCL ER 500 MG TABLET EXTENDED RELEASE 24 HOUR 1 TABLET WITH EVENING MEAL ORALLY ONCE A DAY NOT-TAKING ACETAMINOPHEN EXTRA STRENGTH 500 MG TABLET 1 TABLET NEEDED ORALLY EVERY 6 HRS MEDICATION LIST REVIEWED AND RECONCILED WITH THE PATIENT PAST MEDICAL HISTORY MEDICAL HISTORY VERIFIED. ALLERGIES N.K.D.A. SURGICAL HISTORY NO SURGICAL HISTORY DOCUMENTED. FAMILY HISTORY FATHER: ALIVE 57 YRS MOTHER: ALIVE 53 YRS SIBLINGS: ALIVE 1 BROTHER(S) - HEALTHY. DIABETES IN FATHERHIGH CHOLESTEROL IN BOTH PARENTS. SOCIAL HISTORY GENERAL: TOBACCO USE ARE YOU A:NONSMOKER LATEX QUESTIONNAIRE LATEX ALLERGY : HAVE YOU EVER DEVELOPED ANY TYPE OF REACTION AFTER HANDLING LATEX PRODUCTS SUCH RUBBER GLOVES, CONDOMS, DIAPHRAGMS, BALLOONS, SOCKS, OR UNDERWEAR?NO LATEX ALLERGY : HAVE YOU EVER DEVELOPED ANY TYPE OF REACTION DURING OR AFTER DENTAL APPOINTMENT, VAGINAL/RECTAL EXAMINATION, SURGICAL PROCEDURE, OR ANY OTHER EXPOSURE?NO DATE ASKED : 01/12/2020 LATEX RISK : HAVE YOU EVER HAD ANY DIFFICULTY BREATHING OR HIVES AFTER EATING OR HANDLING ANY FRUITS, OR VEGETABLES; SUCH KIWI, BANANAS, STONE FRUITS, OR CHESTNUTSNO LATEX RISK : DO YOU HAVE A PREVIOUS PERSONAL HISTORY OF MORE THAN NINE SURGERIES, SPINA BIFIDA, OR REPEATED CATHERIZATIONS? NO LATEX RISK : ARE YOU FREQUENTLY EXPOSED TO LATEX PRODUCTS IN YOUR OCCUPATION?NO ALCOHOL SCREENING DID YOU HAVE A DRINK CONTAINING ALCOHOL IN THE PAST YEAR?YES HOW OFTEN DID YOU HAVE SIX OR MORE DRINKS ON ONE OCCASION IN THE PAST YEAR?NEVER (0 POINTS) HOW MANY DRINKS DID YOU HAVE ON A TYPICAL DAY WHEN YOU WERE DRINKING IN THE PAST YEAR?1 OR 2 (0 POINTS) HOW OFTEN DID YOU HAVE A DRINK CONTAINING ALCOHOL IN THE PAST YEAR?TWO TO FOUR TIMES A MONTH (2 POINTS) POINTS2 INTERPRETATIONNEGATIVE RECREATIONAL DRUG USE DRUG USE?NO HIV / HEP-C SCREENING HIV TEST OFFERED TO PATIENT:YES DATE OFFERED:07/28/2019 TEST ACCEPTED:NO REASON:PATIENT DECLINED BROCHURE PROVIDED TO PATIENTYES LANGUAGE LANGUAGES SPOKEN: [place]OREAN EDUCATION LEVEL OF EDUCATION:COLLEGE LEARNING BARRIERS / SPECIAL NEEDS BARRIERS TO LEARNING?NO HEARING IMPAIRED?NO VISION IMPAIRED?NO COGNITIVELY IMPAIRED?NO READINESS TO LEARN?YES LEARNING PREFERENCES?NO LEARNING CAPABILITIES PRESENT?YES EMOTIONAL BARRIERS?NO SPECIAL DEVICES?NO ORE DRESSING ENGINEER NEEDED?YES HAVE AVAILABLE ([place]ORE[place]) OCCUPATION: UNEMPLOYED. DIET: NO ADDED SALT, LOW FAT, LOW CHOLESTEROL. MARITAL STATUS: SINGLE. PAIN CLINIC PFS, CLERGY, PUBLIC HEALTH REFERRALS HAS THE PATIENT BEEN EDUCATED REGARDING HIS/HER PLAN OF CARE?YES HAS THE PATIENT BEEN EDUCATED REGARDING PAIN, THE RISK FOR PAIN, THE IMPORTANCE OF EFFECTIVE PAIN MANAGEMENT, AND THE PAIN ASSESSMENT PROCESS?YES HOUSING: PARENTS HOME. ADVANCE DIRECTIVE ADVANCE DIRECTIVE DISCUSSED WITH PATIENT:YES OFFERED ASSISTANCE NOT NEEDED AT THIS TIME. HOSPITALIZATION/MAJOR DIAGNOSTIC PROCEDURE NO HOSPITALIZATION HISTORY. REVIEW OF SYSTEMS CONSTITUTIONAL: ANY RECENT FEVER NO . CHILLS NO . WEIGHT CHANGE OF UNKNOWN REASONS NO . GASTROENTEROLOGY: NEW UNEXPLAINABLE CHANGES IN BOWEL CONTROL NO . CONSTIPATION NO . GENITOURINARY: ANY NEW CHANGE IN BLADDER CONTROL? NO . NEUROLOGY: NEW ONSET DIZZINESS OR NEUROLOGICAL CHANGES NOT MENTIONED NO . NEW NUMBNESS OR PAIN PATTERNS NOT MENTIONED AND PERTINENT TO TODAY'S VISIT NO . CARDIOLOGY: NEW CHEST PRESSURE NO . NEW CHEST PAIN NO . RESPIRATORY: UNEXPLAINABLE COUGH NO . NEW SHORTNESS OF BREATH NO . VITAL SIGNS WT 143 LBS, HT 66 IN, BMI 23.08 INDEX, BP 157/98 MM HG, REPEAT BP 144/88 MM HG, HR 80 /MIN, RR 16 /MIN, TEMP 96.6 F, OXYGEN SAT % 100, SAFE IN ENV? (Y/N) Y, REVIEWED BY: EM. EXAMINATION GENERAL EXAMINATION: GENERALAWAKE,ALERT ,PLEASANT . PSYCHAFFECT NORMAL . LUNGS:LUNG RUFFIN ARE CLEAR TO AUSCULTATION BILATERALLY. GOOD MOVEMENT OF AIR . HEART:S1, S2 IN A REGULAR RATE AND RHYTHM. NO SIGNIFICANT MURMURS, RUBS OR GALLOPS NOTED . ASSESSMENTS MYALGIA, OTHER SITE - M79.18 (PRIMARY) TREATMENT MYALGIA, OTHER SITE NOTES: CONTINUE HOME EXERCISE AND STRETCHING. FOLLOW-UP WHEN HE RETURNS IN MID APRIL. PROCEDURE CODES FA211 ESTABILISHED PATIENT [facility] CHARGE DISPOSITION & COMMUNICATION FOLLOW UP SCHEDULE AFTER APRIL 22 FOR FOLLOW-UP (REASON: RIGHT SHOULDER PAIN/RESPONDS WELL TO TRIGGER POINT INJECTIONS) ELECTRONICALLY SIGNED BY REAL DUNBAR ON 02/25/2020 AT 04:25 PM EST DISCLAIMER : THIS IS A VISIT SUMMARY EXTRACTED FROM THE [employer] CHART. IT IS NOT A COPY OF THE [employer] PROGRESS NOTE. RADU
== END ==
LOC: M PAIN 09:45
PROVIDERS: ATTEND Nurse Practitioner Family
DX: M79.18 Myalgia, other site (principal); Z79.899 Other long term (current) drug therapy

== ENCOUNTER → 2020-02-26 | Outpatient (REF) | payer BC | LOC: M LAB REF 16:17 | PROVIDERS: ATTEND Physician Assistant Medical | DX: Z11.59 Encounter for screening for other viral diseases (principal) ==

== ENCOUNTER → 2020-06-04 | Outpatient (CLI) | payer BC ==
--- NOTE | 2020-06-08 12:20 | ECWPNPC ---
PATIENT NAME: DALTON ABRAHAM : 1985 GENDER: MALE VISIT DATE: 06/04/2020 DISCHARGE DATE: 06/04/20 1043 VISIT LOCKED DATE TIME: PHYSICIAN: MICHELLE SINGLETARY PHYSICIAN PAGER NO: ACTIVE RESOURCE: MICHELLE SINGLETARY REASON FOR APPOINTMENT 1. RIGHT ARM HISTORY OF PRESENT ILLNESS GENERAL: HERE FOR FOLLOW-UP OF CHRONIC RIGHT ARM PAIN. 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 HAS DONE WELL WITH TRIGGER POINT INJECTIONS AND PHYSICAL THERAPY. PATIENT WOULD LIKE TO RETURN TO PHYSICAL THERAPY BUT DOES NOT WANT TRIGGER POINT INJECTIONS AT THIS TIME. STATES PAIN HAS INCREASED OVER THE PAST FEW WEEKS. -. FALL RISK SCREENING: SCREENING : NO FALLS REPORTED IN THE LAST YEAR. PAIN SCREENING: PATIENT HAS A COMPLAINT OF ACUTE OR CHRONIC PAIN :YES LOCATION OF PAIN:HAND(S) RIGHT ARM INTENSITY OF PAIN (SCALE OF 1 TO 10):7 WHAT DOES YOUR PAIN FEEL LIKE:OTHER JUST HURT DURATION:INTERMITTENT PAIN IS INCREASED BY:OTHERS LIFTING THING PAIN IS DECREASED BY:OTHERS HEAT NURSING NOTE: -. PAIN CENTER INTAKE QUESTIONS: DO YOU HAVE A HISTORY OF MRSA? :NO DO YOU TAKE A BLOOD THINNERS? :NO DO YOU HAVE ANY BLEEDING DISORDERS? :NO ANY NEW NUMBNESS OR WEAKNESS IN YOUR LEGS OR ARMS? :NO ANY PACEMAKER,DEFIBRILLATOR, OR DORSAL COLUMN STIMULATOR? :NO DO YOU HAVE ANY RASHES OR OPEN SORES? :NO ARE YOU ALLERGIC TO IV DYE? :NO ARE YOU DIABETIC? :NO ANY NEW PROBLEMS WITH YOUR MEDICATIONS? :NO HAVE YOU RECEIVED A VACCINE IN THE PAST 30 DAYS? :NO DO YOU PLAN TO RECEIVE A VACCINE IN THE NEXT 21 DAYS? :NO DO YOU NEED ANY PRESCRIPTION? :NO DO YOU TAKE ANY IMMUNOSUPPRESSIVE MEDICATIONS? :NO IS THERE A CHANCE YOU COULD BE ? :NO ARE YOU BREAST FEEDING? :NO CURRENT MEDICATIONS TAKING VITAMIN D 50 MCG (2000 UT) TABLET 1 TABLET ORALLY ONCE A WEEK NOT-TAKING IBUPROFEN 600 MG TABLET 1 TABLET WITH FOOD OR MILK NEEDED ORALLY EVERY 8 HOURS NEEDED NOT-TAKING GABAPENTIN 300 MG CAPSULE 1 CAPSULE ORALLY ONCE A DAY NOT-TAKING METFORMIN HCL ER 500 MG TABLET EXTENDED RELEASE 24 HOUR 1 TABLET WITH EVENING MEAL ORALLY ONCE A DAY NOT-TAKING ACETAMINOPHEN EXTRA STRENGTH 500 MG TABLET 1 TABLET NEEDED ORALLY EVERY 6 HRS MEDICATION LIST REVIEWED AND RECONCILED WITH THE PATIENT PAST MEDICAL HISTORY RIGHT ARM PAIN VITAMIN D DEFICIENCY ALLERGIES N.K.D.A. SOCIAL HISTORY GENERAL: TOBACCO USE ARE YOU A:NONSMOKER LATEX QUESTIONNAIRE LATEX ALLERGY : HAVE YOU EVER DEVELOPED ANY TYPE OF REACTION AFTER HANDLING LATEX PRODUCTS SUCH RUBBER GLOVES, CONDOMS, DIAPHRAGMS, BALLOONS, SOCKS, OR UNDERWEAR?NO LATEX ALLERGY : HAVE YOU EVER DEVELOPED ANY TYPE OF REACTION DURING OR AFTER DENTAL APPOINTMENT, VAGINAL/RECTAL EXAMINATION, SURGICAL PROCEDURE, OR ANY OTHER EXPOSURE?NO LATEX RISK : HAVE YOU EVER HAD ANY DIFFICULTY BREATHING OR HIVES AFTER EATING OR HANDLING ANY FRUITS, OR VEGETABLES; SUCH KIWI, BANANAS, STONE FRUITS, OR CHESTNUTSNO LATEX RISK : DO YOU HAVE A PREVIOUS PERSONAL HISTORY OF MORE THAN NINE SURGERIES, SPINA BIFIDA, OR REPEATED CATHERIZATIONS? NO LATEX RISK : ARE YOU FREQUENTLY EXPOSED TO LATEX PRODUCTS IN YOUR OCCUPATION?NO DATE ASKED : 06/04/2020 ALCOHOL USE: YES. ALCOHOL SCREENING DID YOU HAVE A DRINK CONTAINING ALCOHOL IN THE PAST YEAR?YES HOW OFTEN DID YOU HAVE SIX OR MORE DRINKS ON ONE OCCASION IN THE PAST YEAR?NEVER (0 POINTS) HOW MANY DRINKS DID YOU HAVE ON A TYPICAL DAY WHEN YOU WERE DRINKING IN THE PAST YEAR?1 OR 2 (0 POINTS) HOW OFTEN DID YOU HAVE A DRINK CONTAINING ALCOHOL IN THE PAST YEAR?TWO TO FOUR TIMES A MONTH (2 POINTS) POINTS2 INTERPRETATIONNEGATIVE RECREATIONAL DRUG USE DRUG USE?NO HIV / HEP-C SCREENING HIV TEST OFFERED TO PATIENT:YES DATE OFFERED:07/28/2019 TEST ACCEPTED:NO REASON:PATIENT DECLINED BROCHURE PROVIDED TO PATIENTYES LANGUAGE LANGUAGES SPOKEN: [facility] EDUCATION LEVEL OF EDUCATION:COLLEGE LEARNING BARRIERS / SPECIAL NEEDS CHANGE FROM LAST VISIT?NO BARRIERS TO LEARNING?NO HEARING IMPAIRED?NO VISION IMPAIRED?NO COGNITIVELY IMPAIRED?NO READINESS TO LEARN?YES LEARNING PREFERENCES?NO LEARNING CAPABILITIES PRESENT?YES EMOTIONAL BARRIERS?NO SPECIAL DEVICES?NO GENETIC PHYSICIAN NEEDED?YES HAVE AVAILABLE ([facility]) OCCUPATION: UNEMPLOYED. DIET: NO ADDED SALT, LOW FAT, LOW CHOLESTEROL. MARITAL STATUS: SINGLE. - HAS THE PATIENT BEEN EDUCATED REGARDING HIS/HER PLAN OF CARE?YES HAS THE PATIENT BEEN EDUCATED REGARDING PAIN, THE RISK FOR PAIN, THE IMPORTANCE OF EFFECTIVE PAIN MANAGEMENT, AND THE PAIN ASSESSMENT PROCESS?YES HOUSING: PARENTS HOME. ADVANCE DIRECTIVE ADVANCE DIRECTIVE DISCUSSED WITH PATIENT:YES OFFERED ASSISTANCE NOT NEEDED AT THIS TIME. REVIEW OF SYSTEMS CONSTITUTIONAL: ANY RECENT FEVER NO . CHILLS NO . WEIGHT CHANGE OF UNKNOWN REASONS NO . GASTROENTEROLOGY: NEW UNEXPLAINABLE CHANGES IN BOWEL CONTROL NO . CONSTIPATION NO . GENITOURINARY: ANY NEW CHANGE IN BLADDER CONTROL? NO . NEUROLOGY: NEW ONSET DIZZINESS OR NEUROLOGICAL CHANGES NOT MENTIONED NO . NEW NUMBNESS OR PAIN PATTERNS NOT MENTIONED AND PERTINENT TO TODAY'S VISIT NO . CARDIOLOGY: NEW CHEST PRESSURE NO . PATIENT DENIES NO . RESPIRATORY: UNEXPLAINABLE COUGH NO . NEW SHORTNESS OF BREATH NO . VITAL SIGNS WT 153.4 LBS, HT 66 IN, BMI 24.76 INDEX, BP 146/73 MM HG, HR 83 /MIN, RR 18 /MIN, TEMP 96.0 F, OXYGEN SAT % 100%, SAFE IN ENV? (Y/N) YES, NA INITIALS AW [id number].ARYA CASTELLANO. EXAMINATION GENERAL EXAMINATION: GENERAL AWAKE,ALERT ,PLEAASANT . PSYCH AFFECT NORMAL . LUNGS: LUNG RUFFIN ARE CLEAR TO AUSCULTATION BILATERALLY. GOOD MOVEMENT OF AIR . HEART: S1, S2 IN A REGULAR RATE AND RHYTHM. NO SIGNIFICANT MURMURS, RUBS OR GALLOPS NOTED . MUSCULOSKELETAL:NORMAL RANGE OF MOTION, TRIGGER POINTS:, ELICITED WITH PALPATION OVER RIGHT RHOMBOID, RIGHT UPPER BACK, RIGHT SCAPULA A. PAIN IN THIS AREA IS AGGRAVATED WITH RANGE OF JOINT MOTION OF THE RIGHT ARM.. DIAGNOSTIC TESTS REVIEWEDMRI C-SPINE . ASSESSMENTS MYALGIA, OTHER SITE - M79.18 (PRIMARY) TREATMENT MYALGIA, OTHER SITE REFERRAL TO:PHYSICAL THERAPIST REASON:2XWK X 6 WKS,MYOFASCIAL RELEASE,MASSAGE PROCEDURE CODES FA211 ESTABILISHED PATIENT [facility] CHARGE DISPOSITION & COMMUNICATION FOLLOW UP 6-8 WKS PT F/U (REASON: PT F/U RIGHT NECK PAIN) ELECTRONICALLY SIGNED BY REAL DUNBAR ON 06/07/2020 AT 12:36 PM EDT DISCLAIMER : THIS IS A VISIT SUMMARY EXTRACTED FROM THE [employer] CHART. IT IS NOT A COPY OF THE [employer] PROGRESS NOTE. RADU
== END ==
LOC: M PAIN 10:00
PROVIDERS: ATTEND Nurse Practitioner Family
DX: M79.18 Myalgia, other site (principal); E55.9 Vitamin D deficiency, unspecified